=== PATIENT | female | born 2000 | race Caucasian/White ===

== ENCOUNTER 2021-03-25 04:17 | Emergency (ER) | payer SELFPAY ==
[~2021-03-25] VITALS: Ht 165.1 cm; Wt 72.7 kg
[2021-03-25 04:24] VITALS: TEMP 98.7
[2021-03-25 04:57] VITALS: BP 115/82; PULSE 70
== END 2021-03-25 05:07 | disposition home or self-care (01) ==
LOC: COL.ER 04:17
DX: S86.911A Strain of unspecified muscle(s) and tendon(s) at lower leg level, right leg, initial encounter (principal); M25.461 Effusion, right knee; W19.XXXA Unspecified fall, initial encounter; Y93.01 Activity, walking, marching and hiking